=== PATIENT | female | born 1960 | race Caucasian/White ===

== ENCOUNTER 2017-11-02 21:18 | Emergency (ER) | payer OTHER ==
[2017-11-02] MEDS ORDERED: MEPERIDINE HCL 50 MG/ML AMP ONE (21:57)
--- NOTE | 2017-11-02 22:46 | EDPHYS ---
Physician Documentation [facility] Name: Dayami Oconnell Age: 57 yrs Sex: Female : 1960 Arrival Date: 11/02/2017 Time: 21:21 Bed 24 Private MD: Rian Sofia ED Physician Gui Layton HPI: 11/02 21:52 This 57 yrs old Female presents to ER via Wheelchair with complaints of rn Headache. 21:52 The patient complains of pain to the top of head. The patient describes the headache as rn aching. 21:53 Onset: The symptoms/episode began/occurred yesterday. Associated signs and symptoms: rn Pertinent positives: nausea, Photophobia. Severity of symptoms: At its worst the pain was moderate, "similar to past headaches". Headache History: The patient has had previous headaches and this one is similar to previous episodes. The patient has experienced similar episodes in the past. The patient has been recently seen by a physician:. Just seen and discharged from [facility] for same headache, no ct done, states similar to previous headaches but only got toradol and tramadol at [facility], here for stronger medication as headache is returning, no head trauma. NO focal weakness, + baseline right sided weakness from previous CVA.. 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 - Social history:: Smoking status: Patient/guardian denies using tobacco. - Family history:: not pertinent. - Hospitalizations: : No recent hospitalization is reported. ROS: 21:53 Constitutional: Negative for fever, chills, and weight loss, Eyes: Negative for injury, rn pain, redness, and discharge, Neck: Negative for injury, pain, and swelling, Cardiovascular: Negative for chest pain, palpitations, and edema, Respiratory: Negative for shortness of breath, cough, wheezing, and pleuritic chest pain, Abdomen/GI: Negative for abdominal pain, vomiting, diarrhea, and constipation, MS/Extremity: Negative for injury and deformity, Skin: Negative for injury, rash, and discoloration, Neuro: Negative for numbness, tingling, and seizure. Exam: 21:53 Constitutional: This is a well developed, well nourished patient who is awake, alert, rn and in no acute distress. Head/Face: Normocephalic, atraumatic. Eyes: Pupils equal round and reactive to light, extra-ocular motions intact. Lids and lashes normal. Conjunctiva and sclera are non-icteric and not injected. Cornea within normal limits. Periorbital areas with no swelling, redness, or edema. Neck: Trachea midline, no thyromegaly or masses palpated, and no cervical lymphadenopathy. Supple, full range of motion without nuchal rigidity, or vertebral point tenderness. No Meningismus. Cardiovascular: Regular rate and rhythm with a normal S1 and S2. No gallops, murmurs, or rubs. Normal PMI, no JVD. No pulse deficits. Respiratory: Lungs have equal breath sounds bilaterally, clear to auscultation and percussion. No rales, rhonchi or wheezes noted. No increased work of breathing, no retractions or nasal flaring. Abdomen/GI: Soft, non-tender, with normal bowel sounds. No distension or tympany. No guarding or rebound. No evidence of tenderness throughout. MS/ Extremity: Pulses equal, no cyanosis. Neurovascular intact. Full, normal range of motion. Equal circumference. Neuro: Awake and alert, GCS 15, oriented to person, place, time, and situation. Cranial nerves II-XII grossly intact. Motor strength 4/5 rue/rle, 5/5 lue/lle. Sensory grossly intact. Vital Signs: 21:27 BP 133 / 74; Pulse 99; Resp 17; Temp 97.9; Pulse Ox 99% on R/A; Weight 49.9 kg; Height aj 5 ft. 2 in. (157.48 cm); Pain 9/10; 22:55 BP 108 / 66; Pulse 94; Resp 16; Pulse Ox 98% on R/A; kr2 21:27 Body Mass Index 20.12 (49.90 kg, 157.48 cm) aj Andreea Coma Score: 22:44 Eye Response: spontaneous(4). Verbal Response: oriented(5). Motor Response: obeys rn commands(6). Total: 15. MDM: 21:30 Patient medically screened. rn 22:44 ED course: Pt sleeping comfortably. CT head no acute findings.. rn 22:44 Differential diagnosis: migraine. Data reviewed: vital signs, nurses notes, radiologic rn studies, CT scan, and as a result, I will discharge patient. Counseling: I had a detailed discussion with the patient and/or guardian regarding: the historical points, exam findings, and any diagnostic results supporting the discharge/admit diagnosis, radiology results, the need for outpatient follow up, to return to the emergency department if symptoms worsen or persist or if there are any questions or concerns that arise at home. Special discussion: I discussed with the patient/guardian in detail that at this point there is no indication for admission to the hospital. It is understood, however, that if the symptoms persist or worsen the patient needs to return immediately for re-evaluation. 11/02 21:36 Order name: CT Head Brain wo Cont rn Administered Medications: 21:42 Drug: Demerol 50 mg Route: IM; Site: left deltoid; kr2 22:56 Follow up: Response: No adverse reaction; Pain is decreased kr2 Disposition: 11/02/17 22:45 Discharged to Home. Impression: Migraine. - Condition is Stable. - Discharge Instructions: Migraine Headache. - Medication Reconciliation Form, Thank You Letter, Antibiotic Education, Prescription Opioid Use form. - Follow up: Rian Sofia MD; When: As needed; Reason: Recheck today's complaints, Re-evaluation by your physician. - Problem is an acute exacerbation. - Symptoms have improved. Signatures: Dispatcher [employer] EDMaine Maxwell RN RN aj Nieto, Roman, MD MD rn Reaves, Karey, RN RN kr2
--- NOTE | 2017-11-02 22:46 | ER ---
Nurse's Notes [facility] Name: Dayami Oconnell Age: 57 yrs Sex: Female : 1960 Arrival Date: 11/02/2017 Time: 21:21 Bed 24 Private MD: Rian Sofia Diagnosis: Migraine Presentation: 11/02 21:25 Presenting complaint: Patient states: Migraine that started yesterday. Treated at [facility] 2 hours ago. Transition of care: patient was not received from another setting of care. Onset of symptoms was November 01, 2017. Care prior to arrival: None. 21:25 Method Of Arrival: Wheelchair 21:25 Acuity: RIMA 4 Triage Assessment: 21:27 Headache History: The patient has had previous headaches and this one is similar to previous episodes. General: Appears in no apparent distress. uncomfortable, Behavior is calm, cooperative, appropriate for age. Pain: Complains of pain in face and scalp Pain currently is 9 out of 10 on a pain scale. Pain began 1 day ago. Also complains of nausea. 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 Moves all extremities. Full function Speech is normal, Reports headache. Respiratory: Airway is patent Respiratory effort is even, unlabored, Respiratory pattern is regular, symmetrical. GI: Reports nausea, vomiting. Derm: Skin is intact, is healthy with good turgor, Skin is pink, warm \T\ dry. normal. 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 - Social history:: Smoking status: Patient/guardian denies using tobacco. - Family history:: not pertinent. - Hospitalizations: : No recent hospitalization is reported. Screenin:35 Abuse screen: Denies threats or abuse. Denies injuries from another. Nutritional kr2 screening: No deficits noted. Tuberculosis screening: No symptoms or risk factors identified. Fall Risk None identified. Assessment: 21:30 General: Appears in no apparent distress. uncomfortable, slender, well groomed, kr2 Behavior is calm, cooperative, appropriate for age, quiet. Pain: Complains of pain in top of head and scalp and face Pain currently is 9 out of 10 on a pain scale. Quality of pain is described as aching, pressure, Pain began 1 day ago. Is continuous, Alleviated by medications, rest, Aggravated by light and sound Noted to be grimacing, quiet/stoic. Neuro: Level of Consciousness is awake, alert, obeys commands, Oriented to person, place, time, situation, Appropriate for age Reports history of stroke resulting in right- sided weakness with no increased weakness at this time. Cardiovascular: Capillary refill < 3 seconds in bilateral fingers Patient's skin is warm and dry. Respiratory: Airway is patent Respiratory effort is even, unlabored, Respiratory pattern is regular, symmetrical. GI: Abdomen is flat, non-distended, Reports nausea. : No signs and/or symptoms were reported regarding the genitourinary system. Denies burning with urination. EENT: Oral mucosa is dry. Derm: Skin is intact, is healthy with good turgor, Skin is pink, warm \T\ dry. Musculoskeletal: Circulation, motion, and sensation intact. 22:23 Reassessment: Patient appears in no apparent distress at this time. Patient and/or kr2 family updated on plan of care and expected duration. Pain level reassessed. Patient is alert, oriented x 3, equal unlabored respirations, skin warm/dry/pink. Patient states symptoms have improved. Vital Signs: 21:27 BP 133 / 74; Pulse 99; Resp 17; Temp 97.9; Pulse Ox 99% on R/A; Weight 49.9 kg; Height aj 5 ft. 2 in. (157.48 cm); Pain 9/10; 22:55 BP 108 / 66; Pulse 94; Resp 16; Pulse Ox 98% on R/A; kr2 21:27 Body Mass Index 20.12 (49.90 kg, 157.48 cm) aj Andreea Coma Score: 22:44 Eye Response: spontaneous(4). Verbal Response: oriented(5). Motor Response: obeys rn commands(6). Total: 15. ED Course: 21:21 Patient arrived in ED. es 21:22 Rian Sofia MD is Private Physician. es 21:27 Triage completed. aj 21:27 Arm band placed on left wrist. Patient placed in an exam room. aj 21:30 Gui Layton MD is Attending Physician. rn 21:31 Jess Baxter RN is Primary Nurse. kr2 21:36 Patient has correct armband on for positive identification. Bed in low position. Call kr2 light in reach. Side rails up X2. Adult w/ patient. Pulse ox on. NIBP on. Noise minimized. Lights dimmed. Warm blanket given. Head of bed elevated. 22:[address] vm2 22:18 CT completed. Patient tolerated procedure well. Patient moved back from CT. nc 22:19 CT Head Brain wo Cont In Process Unspecified. EDMS 22:45 Rian Sofia MD is Referral Physician. rn 22:56 No provider procedures requiring assistance completed. Patient did not have IV access kr2 during this emergency room visit. Administered Medications: 21:42 Drug: Demerol 50 mg Route: IM; Site: left deltoid; kr2 22:56 Follow up: Response: No adverse reaction; Pain is decreased kr2 Outcome: 22:45 Discharge ordered by MD. rn 22:56 Discharged to home via wheelchair, with family. kr2 22:56 Condition: improved 22:56 Discharge instructions given to patient, family, Instructed on discharge instructions, follow up and referral plans. medication usage, Demonstrated understanding of instructions, follow-up care, medications. 22:57 Patient left the ED. 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 Full function Speech is normal, Reports headache aj 22:23 22:20 General: Appears kr2 kr2
[2017-11-02 23:07] VITALS: TEMP 97.9
[2017-11-02 23:09] VITALS: BP 108/66; O2SAT 98
--- NOTE | 2017-11-03 08:10 | RAD REPORT ---
EXAM DESCRIPTION: CT - Head Brain Wo Cont - 11/03/2017 3:46 am CLINICAL HISTORY: Headache, history of CVA. COMPARISON: 08/05/2012, 09/21/2011 TECHNIQUE: All CT scans are performed using dose optimization technique as appropriate and may inclu de automated exposure control or mA/KV adjustment according to patient size. FINDINGS: No intracranial hemorrhage, hydrocephalus or extra-axial fluid collection.Significant glio sis is seen in the left frontal lobe. This appears chronic and likely related to previous CVA. No mid line shift is evident. The paranasal sinuses and mastoids are clear. The calvarium is intact. IMPRESSION: No acute intracranial abnormality.
== END 2017-11-02 22:57 | disposition home or self-care (01) ==
LOC: ER 21:18
DX: G43.909 Migraine, unspecified, not intractable, without status migrainosus (principal); Z79.82 Long term (current) use of aspirin; Z86.73 Personal history of transient ischemic attack (TIA), and cerebral infarction without residual deficits
CPT/HCPCS: 70450; 96372; 99284; J2175

== ENCOUNTER 2018-03-26 12:14 | Emergency (ER) | payer OTHER ==
[2018-03-26] MEDS ORDERED: METOCLOPRAMIDE 10 MG/2mL INJ ONE (15:33)
[2018-03-26] MEDS ORDERED: NA CHLORIDE 0.9% 1,000 ML ONE (15:33)
[2018-03-26] MEDS ORDERED: DIPHENHYDRAMINE 50 MG/ML VIAL ONE (15:33)
[2018-03-26] MEDS ORDERED: DEXAMETHASONE 10 MG/ML VIAL ONE ×2 (17:11→17:14)
[2018-03-26] MEDS ORDERED: KETOROLAC 30 MG/ML INJ ONE ×2 (17:11→17:14)
[2018-03-26] MEDS ORDERED: MEPERIDINE HCL 50 MG/ML AMP ONE (18:30)
--- NOTE | 2018-03-26 18:55 | RAD REPORT ---
EXAM DESCRIPTION: CT - Head Brain Wo Cont - 03/26/2018 6:34 pm CLINICAL HISTORY: Headache COMPARISON: October 2017 TECHNIQUE: Computed axial tomography of the head was obtained. IV contrast was not requested. All CT scans are performed using dose optimization technique as appropriate and may include automated exposure control or mA/KV adjustment according to patient size. 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 An intracranial bleed is not seen . The ventricles are normal in caliber. No extra-axial fluid collection is noted. Fluid within the sinuses/ mastoids is not seen. IMPRESSION: No acute intracranial abnormality is seen. If patient's symptoms persist MRI of the bra in would be recommended.
--- NOTE | 2018-03-26 19:03 | ER ---
Nurse's Notes [facility] Name: Dayami Oconnell Age: 57 yrs Sex: Female : 1960 Arrival Date: 03/26/2018 Time: 12:16 Bed 26 Private MD: Rian Sofia Diagnosis: Acute Headache Presentation: 03/26 12:45 Presenting complaint: Patient states: migraine x 2 days above L eye. Transition of ss care: patient was not received from another setting of care. Onset of symptoms was March 24, 2018. Risk Assessment: Do you want to hurt yourself or someone else? Patient reports no desire to harm self or others. Initial Sepsis Screen: Does the patient meet any 2 criteria? No. Patient's initial sepsis screen is negative. Does the patient have a suspected source of infection? No. Patient's initial sepsis screen is negative. Care prior to arrival: None. 12:45 Method Of Arrival: Ambulatory ss 12:45 Acuity: RIMA 4 ss Historical: - Allergies: 12:46 No Known Allergies; ss - Home Meds: 17:27 Aspirin Oral [Active]; rv - PMHx: 12:46 CVA; Migraines; ss - PSHx: 12:46 None; ss - Immunization history:: Adult Immunizations up to date. - Social history:: Smoking status: Patient/guardian denies using tobacco. - Ebola Screening: : Patient denies exposure to infectious person Patient denies travel to an Ebola-affected area in the 21 days before illness onset. Screenin:33 Abuse screen: Denies threats or abuse. Denies injuries from another. Abuse screen: sv Denies threats or abuse. Nutritional screening: No deficits noted. Tuberculosis screening: No symptoms or risk factors identified. Fall Risk None identified. Assessment: 15:00 General: Appears in no apparent distress. uncomfortable, Behavior is calm, cooperative. rv 15:00 Pain: Complains of pain in HEAD, LEFT SIDE Pain currently is 7 out of 10 on a pain rv scale. Neuro: Level of Consciousness is awake, alert, obeys commands, Oriented to person, place, time, situation. Cardiovascular: Capillary refill < 3 seconds. Respiratory: Airway is patent. GI: No signs and/or symptoms were reported involving the gastrointestinal system. : No signs and/or symptoms were reported regarding the genitourinary system. EENT: No signs and/or symptoms were reported regarding the EENT system. Derm: Skin is intact. 17:00 Reassessment: Patient appears in no apparent distress at this time. Patient and/or hb family updated on plan of care and expected duration. Pain level reassessed. Patient is alert, oriented x 3, equal unlabored respirations, skin warm/dry/pink. 18:00 Reassessment: Patient appears in no apparent distress at this time. Patient and/or hb family updated on plan of care and expected duration. Pain level reassessed. Patient is alert, oriented x 3, equal unlabored respirations, skin warm/dry/pink. Vital Signs: 12:46 BP 113 / 59; Pulse 81; Resp 15; Temp 98.1(TE); Pulse Ox 97% on R/A; Weight 49.9 kg; ss Height 5 ft. 2 in. (157.48 cm); Pain 5/10; 17:08 BP 96 / 64 LA Supine (auto/pedi); Pulse 79; Resp 19 S; Pulse Ox 99% on R/A; jp3 17:27 BP 99 / 63; Pulse 83; Pulse Ox 97% on R/A; rv 19:17 BP 100 / 62; Pulse 75; Pulse Ox 100% on R/A; rv 12:46 Body Mass Index 20.12 (49.90 kg, 157.48 cm) ED Course: 12:16 Patient arrived in ED. sb2 12:17 Rian Sofia MD is Private Physician. sb2 12:46 Triage completed. ss 12:46 Arm band placed on right wrist. ss 14:55 Patient placed in an exam room, on a stretcher. sv 14:59 Mando Pickett PA is PHCP. jmm 14:59 Buddy Roberts MD is Attending Physician. jmm 15:28 Inserted saline lock: 20 gauge in left antecubital area, using aseptic technique. sv ,using aseptic technique. done by Winston ALBARRAN. 15:33 Patient has correct armband on for positive identification. Bed in low position. Call sv light in reach. Door closed. Noise minimized. Lights dimmed. Warm blanket given. Head of bed elevated. 18:34 CT Head Brain wo Cont In Process Unspecified. EDMS 19:01 Kurt Garcia MD is Referral Physician. jmm 19:16 No provider procedures requiring assistance completed. IV discontinued, bleeding rv controlled, No redness/swelling at site. Pressure dressing applied. Administered Medications: 15:30 Drug: diphenhydrAMINE 12.5 mg Route: IVP; Site: left antecubital; sv 19:15 Follow up: Response: No adverse reaction rv 15:33 Drug: NS 0.9% 1000 ml Route: IV; Rate: 1 bolus; Site: left antecubital; sv 19:15 Follow up: Response: No adverse reaction; IV Status: Completed infusion rv 15:33 Drug: Reglan 10 mg Route: IVP; Site: left antecubital; sv 19:15 Follow up: Response: No adverse reaction rv 17:11 Drug: Decadron - Dexamethasone 10 mg Route: IVP; Site: right antecubital; hb 18:00 Follow up: Response: No adverse reaction hb 17:11 Drug: Ketorolac 30 mg Route: IVP; Site: left antecubital; hb 18:00 Follow up: Response: No adverse reaction hb 18:30 Drug: Demerol 25 mg Route: IVP; Site: left antecubital; hb 19:15 Follow up: Response: Pain is decreased rv Outcome: 19:02 Discharge ordered by MD. [facility] 19:16 Discharged to home ambulatory. rv 19:16 Condition: good 19:16 Discharge instructions given to patient, family, Instructed on discharge instructions, follow up and referral plans. medication usage, Demonstrated understanding of instructions, follow-up care, medications, Prescriptions given X 1. 19:16 Patient left the ED. rv Signatures: Dispatcher [employer] Jesika Fermin RN RN sv Mickail, Joel, PA PA jmm Smirch, Shelby, RN RN Lynne Batres RN RN Stefani Mckeon sb2 Winston Chou RN RN Dimitri Mejía jp3
--- NOTE | 2018-03-26 19:03 | EDPHYS ---
Physician Documentation [facility] Name: Dayami Oconnell Age: 57 yrs Sex: Female : 1960 Arrival Date: 03/26/2018 Time: 12:16 Bed 26 Private MD: Rian Sofia ED Physician Buddy Roberts HPI: 03/26 15:21 This 57 yrs old Female presents to ER via Ambulatory with complaints of jmm MIGRAINE. 15:21 The patient complains of pain to the left sikh, left frontal area, left side of jmm forehead and left temporal area. The patient describes the headache as aching. Onset: The symptoms/episode began/occurred gradually, 1 day(s) ago. Associated signs and symptoms: Pertinent negatives: dizziness, fever, malaise, neck stiffness, paresthesias. This is a 57 year old female with a history of CVA that presents to the ED with left headache beginning 1 day ago. Headache is gradual on onset. Patient has had similar headaches in the past. Denies fever, . Historical: - Allergies: 12:46 No Known Allergies; ss - Home Meds: 17:27 Aspirin Oral [Active]; rv - PMHx: 12:46 CVA; Migraines; ss - PSHx: 12:46 None; ss - Immunization history:: Adult Immunizations up to date. - Social history:: Smoking status: Patient/guardian denies using tobacco. - Ebola Screening: : Patient denies exposure to infectious person Patient denies travel to an Ebola-affected area in the 21 days before illness onset. ROS: 15:21 Constitutional: Negative for fever, chills, and weight loss, Cardiovascular: Negative jmm for chest pain, palpitations, and edema, Respiratory: Negative for shortness of breath, cough, wheezing, and pleuritic chest pain. 15:21 Neuro: Positive for headache. 15:21 All other systems are negative. Exam: 15:21 Constitutional: This is a well developed, well nourished patient who is awake, alert, jmm and in no acute distress. Head/Face: atraumatic. Chest/axilla: Normal chest wall appearance and motion. Cardiovascular: Regular rate and rhythm. No edema appreciated Respiratory: Normal respirations, no respiratory distress appreciated Abdomen/GI: Non distended, soft 15:21 Neuro: Orientation: is normal, Mentation: is normal, Memory: is normal. 15:21 Neuro: Cerebellar function: normal finger to nose testing, Motor: is normal. 15:21 Psych: Behavior/mood is pleasant, cooperative. Vital Signs: 12:46 BP 113 / 59; Pulse 81; Resp 15; Temp 98.1(TE); Pulse Ox 97% on R/A; Weight 49.9 kg; ss Height 5 ft. 2 in. (157.48 cm); Pain 5/10; 17:08 BP 96 / 64 LA Supine (auto/pedi); Pulse 79; Resp 19 S; Pulse Ox 99% on R/A; jp3 17:27 BP 99 / 63; Pulse 83; Pulse Ox 97% on R/A; rv 19:17 BP 100 / 62; Pulse 75; Pulse Ox 100% on R/A; rv 12:46 Body Mass Index 20.12 (49.90 kg, 157.48 cm) ss MDM: 15:[address] [facility] 18:22 Data reviewed: vital signs, nurses notes. [facility] 19:00 Sepsis 6 hour Focused Exam:. Counseling: I had a detailed discussion with the patient [facility] and/or guardian regarding: the historical points, exam findings, and any diagnostic results supporting the discharge/admit diagnosis, radiology results, the need for outpatient follow up, to return to the emergency department if symptoms worsen or persist or if there are any questions or concerns that arise at home. Response to treatment: the patient's symptoms have markedly improved after treatment. ED course: MAR similar to previous, negative CT, patient is advised to follow up with Neuro for further evaluatino. Given strict return precautions. understood and agrees with the plan of care. . 03/26 18:02 Order name: CT Head Brain wo Cont; Complete Time: 19:00 [facility] Administered Medications: 15:30 Drug: diphenhydrAMINE 12.5 mg Route: IVP; Site: left antecubital; sv 19:15 Follow up: Response: No adverse reaction rv 15:33 Drug: NS 0.9% 1000 ml Route: IV; Rate: 1 bolus; Site: left antecubital; sv 19:15 Follow up: Response: No adverse reaction; IV Status: Completed infusion rv 1533 Drug: Reglan 10 mg Route: IVP; Site: left antecubital; sv 19:15 Follow up: Response: No adverse reaction rv 17:11 Drug: Decadron - Dexamethasone 10 mg Route: IVP; Site: right antecubital; hb 18:00 Follow up: Response: No adverse reaction hb 17:11 Drug: Ketorolac 30 mg Route: IVP; Site: left antecubital; hb 18:00 Follow up: Response: No adverse reaction hb 18:30 Drug: Demerol 25 mg Route: IVP; Site: left antecubital; hb 19:15 Follow up: Response: Pain is decreased rv Disposition: 03/26/18 19:02 Discharged to Home. Impression: Acute Headache. - Condition is Stable. - Discharge Instructions: General Headache Without Cause. - Prescriptions for Fiorinal 50- 325-40 mg Oral Capsule - take 1 capsule by ORAL route every 4 hours As needed - not to exceed 6 capsules per day; 20 capsule. - Medication Reconciliation Form, Thank You Letter, Antibiotic Education, Prescription Opioid Use form. - Follow up: Kurt Garcia MD; When: 2 - 3 days; Reason: Recheck today's complaints, Continuance of care, Re-evaluation by your physician. Addendum: 03/28/2018 11:28 Co-signature as Attending Physician, Buddy Roberts MD I agree with the assessment and w a plan of care. Signatures: Dispatcher [employer] Jesika Fermin, RN RN Mando Nogueira PA PA jmm Smirch, Shelby, RN RN Lynne Batres RN RN hb Appiah, William, MD MD wa Vicente, Ronaldo RN RN rv Corrections: (The following items were deleted from the chart) 03/26 19:16 19:02 03/26/2018 19:02 Discharged to Home. Impression: Acute Headache. Condition is rv Stable. Forms are Medication Reconciliation Form, Thank You Letter, Antibiotic Education, Prescription Opioid Use. Follow up: Kurt Garcia; When: 2 - 3 days; Reason: Recheck today's complaints, Continuance of care, Re-evaluation by your physician. luis
[2018-03-26 19:23] VITALS: TEMP 98.1
[2018-03-26 19:25] VITALS: BP 99/63; O2SAT 97
== END 2018-03-26 19:16 | disposition home or self-care (01) ==
LOC: ER 12:14
DX: R51 Headache (principal); Z86.73 Personal history of transient ischemic attack (TIA), and cerebral infarction without residual deficits
CPT/HCPCS: 70450; J1100 ×2; J2175; J2765; J7030; 99284

== ENCOUNTER 2018-07-31 19:07 | Emergency (ER) | payer OTHER ==
[2018-07-31] MEDS ORDERED: METOCLOPRAMIDE 10 MG/2mL INJ ONE (20:30)
[2018-07-31] MEDS ORDERED: KETOROLAC 30 MG/ML INJ ONE (20:30)
[2018-07-31] MEDS ORDERED: DIPHENHYDRAMINE 50 MG/ML VIAL ONE (20:30)
[2018-07-31] MEDS ORDERED: NA CHLORIDE 0.9% 1,000 ML ONE (20:30)
--- NOTE | 2018-07-31 22:24 | ER ---
Nurse's Notes [facility] Name: Dayami Oconnell Age: 57 yrs Sex: Female : 1960 Arrival Date: 07/31/2018 Time: 19:07 Bed 17 Private MD: Rian Sofia Diagnosis: Headache Presentation: 07/31 19:30 Presenting complaint: states: that pt woke up this am with headache and has fc also had nausea and vomiting since. Taken Zofran x 2 with no relief. Transition of care: patient was not received from another setting of care. Onset of symptoms was July 31, 2018 at 07:30. Risk Assessment: Do you want to hurt yourself or someone else? Patient reports no desire to harm self or others. Initial Sepsis Screen: Does the patient meet any 2 criteria? HR > 90 bpm. Yes Does the patient have a suspected source of infection? No. Patient's initial sepsis screen is negative. Care prior to arrival: Medication(s) given: zofran last at 1600. 19:30 Method Of Arrival: Ambulatory 19:30 Acuity: RIMA 3 Triage Assessment: 19:32 Headache History: The patient has had previous headaches and this one is similar to previous episodes. General: Appears uncomfortable, slender, Behavior is calm, cooperative, appropriate for age. Pain: Complains of pain in head Pain currently is 9 out of 10 on a pain scale. Quality of pain is described as aching, sharp, throbbing, Pain began 12 hrs ago Is continuous, Also complains of nausea, photophobia. EENT: No deficits noted. Neuro: Level of Consciousness is awake, alert, obeys commands, Oriented to person, place, time, situation, Appropriate for age Reports weakness to right arm and leg from previous stroke. Cardiovascular: No deficits noted. Respiratory: No deficits noted. GI: No deficits noted. : No deficits noted. Derm: Skin is pink, warm \T\ dry. Musculoskeletal: Reports weakness in right leg and right arm from previous stroke. 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 - Social history:: Smoking status: Patient/guardian denies using tobacco, Patient/guardian denies using alcohol, street drugs. - Ebola Screening: : Patient negative for fever greater than or equal to 101.5 degrees Fahrenheit, and additional compatible Ebola Virus Disease symptoms Patient denies exposure to infectious person Patient denies travel to an Ebola-affected area in the 21 days before illness onset. Screenin:36 Abuse screen: Denies threats or abuse. Nutritional screening: No deficits noted. tl2 Tuberculosis screening: No symptoms or risk factors identified. Fall Risk IV access (20 points). Assessment: 20:36 General: Appears in no apparent distress. uncomfortable, Behavior is calm, cooperative, tl2 appropriate for age. Pain: Complains of pain in headache Pain currently is 10 out of 10 on a pain scale. Also complains of nausea, photophobia. Neuro: Level of Consciousness is awake, alert, obeys commands. Cardiovascular: Denies chest pain. Respiratory: Airway is patent Respiratory effort is even, unlabored, Respiratory pattern is regular, symmetrical. GI: Reports nausea, vomiting. : No signs and/or symptoms were reported regarding the genitourinary system. Derm: Skin is pink, warm \T\ dry. 20:51 Reassessment: Patient appears in no apparent distress at this time. Patient and/or tl2 family updated on plan of care and expected duration. Pain level reassessed. Patient is alert, oriented x 3, equal unlabored respirations, skin warm/dry/pink. pillow and blanket provided. Pt appears more comfortable. Awaiting further orders. 22:19 Reassessment: Patient appears in no apparent distress at this time. Patient and/or tl2 family updated on plan of care and expected duration. Pain level reassessed. Patient is alert, oriented x 3, equal unlabored respirations, skin warm/dry/pink. MD at bedside, pt states she is ready to go home Patient states feeling better. 22:32 Reassessment: Patient appears in no apparent distress at this time. Patient and/or tl2 family updated on plan of care and expected duration. Pain level reassessed. Patient is alert, oriented x 3, equal unlabored respirations, skin warm/dry/pink. pt verbalized understanding of discharge instructions, need for follow up and prescription usage. Vital Signs: 19:32 BP 132 / 70; Pulse 106; Resp 18; Temp 98.0(O); Pulse Ox 100% on R/A; Weight 49.9 kg fc (R); Height 5 ft. 2 in. (157.48 cm) (R); Pain 9/10; 20:51 BP 130 / 85; Pulse 93; Resp 18; Pulse Ox 100% on R/A; tl2 21:31 BP 114 / 69; Pulse 94; Resp 18; Pulse Ox 100% on R/A; tl2 22:18 BP 105 / 55; Pulse 82; Resp 18; Pulse Ox 99% on R/A; Pain 4/10; tl2 19:32 Body Mass Index 20.12 (49.90 kg, 157.48 cm) ED Course: 19:07 Patient arrived in ED. es 19:10 Rian Sofia MD is Private Physician. es 19:31 Triage completed. fc 19:32 Arm band placed on Patient placed in an exam room, on a stretcher. fc 19:49 Erick Gallo MD is Attending Physician. gs 20:12 Carisa Mathew RN is Primary Nurse. tl2 20:33 Inserted saline lock: 22 gauge in left antecubital area, using aseptic technique. lt1 20:36 Patient has correct armband on for positive identification. Bed in low position. Call tl2 light in reach. Side rails up X2. 22:35 No provider procedures requiring assistance completed. IV discontinued, intact, tl2 bleeding controlled, No redness/swelling at site. Pressure dressing applied. Administered Medications: 20:32 Drug: Reglan 5 mg Route: IVP; Site: left antecubital; tl2 22:38 Follow up: Response: No adverse reaction tl2 20:32 Drug: Benadryl 12.5 mg Route: IVP; Site: left antecubital; tl2 22:40 Follow up: Response: No adverse reaction; Pain is decreased tl2 20:33 Drug: TORadol 15 mg Route: IVP; Site: left antecubital; tl2 22:40 Follow up: Response: No adverse reaction tl2 20:33 Drug: NS 0.9% 1000 ml Route: IV; Rate: 1 bolus; Site: left antecubital; tl2 22:41 Follow up: IV Status: Completed infusion; IV Intake: 1000ml tl2 Intake: 22:41 IV: 1000ml; Total: 1000ml. tl2 Outcome: 22:22 Discharge ordered by . 22:35 Discharged to home ambulatory, with family. tl2 22:35 Condition: stable 22:35 Discharge instructions given to patient, family, Instructed on discharge instructions, follow up and referral plans. medication usage, Demonstrated understanding of instructions, follow-up care, medications, Prescriptions given X 1. 22:41 Patient left the ED. tl2 Signatures: Lupe Motta Felicia RN RN Carisa Mathew RN RN tl2 Erick Gallo MD MD gs Tran, [facility] Corrections: (The following items were deleted from the chart) 19:35 19:32 Neuro: Level of Consciousness is awake, alert, obeys commands, Oriented to person, place, time, situation, Appropriate for age 19:35 19:32 Musculoskeletal: No deficits noted. [facility] 22:35 20:36 Pain: Complains of pain in headache Pain currently is 103 out of 10 on a pain tl2 scale. Also complains of nausea, photophobia, tl2 22:36 22:32 Reassessment: Patient appears in no apparent distress at this time. Patient tl2 and/or family updated on plan of care and expected duration. Pain level reassessed. Patient is alert, oriented x 3, equal unlabored respirations, skin warm/dry/pink. tl2
--- NOTE | 2018-07-31 22:24 | EDPHYS ---
Physician Documentation [facility] Name: Dayami Oconnell Age: 57 yrs Sex: Female : 1960 Arrival Date: 07/31/2018 Time: 19:07 Bed 17 Private MD: Rian Sofia ED Physician Erick Gallo HPI: 07/31 22:13 This 57 yrs old Female presents to ER via Ambulatory with complaints of gs Headache. 22:13 The patient complains of pain to the forehead and left islam. The patient describes gs the headache as throbbing. Onset: The symptoms/episode began/occurred suddenly, this morning. Associated signs and symptoms: Pertinent positives: vomiting, Pertinent negatives: altered mental status. Severity of symptoms: At its worst the pain was severe, in the emergency department the pain is unchanged. Headache History: The patient has had previous headaches and this one is similar to previous episodes. The symptoms are alleviated by nothing. the symptoms are aggravated by nothing. The patient has experienced similar episodes in the past, chronically. The patient has not recently seen a physician. 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 - Social history:: Smoking status: Patient/guardian denies using tobacco, Patient/guardian denies using alcohol, street drugs. - Ebola Screening: : Patient negative for fever greater than or equal to 101.5 degrees Fahrenheit, and additional compatible Ebola Virus Disease symptoms Patient denies exposure to infectious person Patient denies travel to an Ebola-affected area in the 21 days before illness onset. ROS: 22:13 All other systems are negative. gs Exam: 22:13 Head/Face: Normocephalic, atraumatic. Eyes: Pupils equal round and reactive to light, gs extra-ocular motions intact. Lids and lashes normal. Conjunctiva and sclera are non-icteric and not injected. Cornea within normal limits. Periorbital areas with no swelling, redness, or edema. ENT: Nares patent. No nasal discharge, no septal abnormalities noted. Tympanic membranes are normal and external auditory canals are clear. Oropharynx with no redness, swelling, or masses, exudates, or evidence of obstruction, uvula midline. Mucous membranes moist. Neck: Trachea midline, no thyromegaly or masses palpated, and no cervical lymphadenopathy. Supple, full range of motion without nuchal rigidity, or vertebral point tenderness. No Meningismus. Chest/axilla: Normal chest wall appearance and motion. Nontender with no deformity. No lesions are appreciated. Cardiovascular: Regular rate and rhythm with a normal S1 and S2. No gallops, murmurs, or rubs. Normal PMI, no JVD. No pulse deficits. Respiratory: Lungs have equal breath sounds bilaterally, clear to auscultation and percussion. No rales, rhonchi or wheezes noted. No increased work of breathing, no retractions or nasal flaring. Abdomen/GI: Soft, non-tender, with normal bowel sounds. No distension or tympany. No guarding or rebound. No evidence of tenderness throughout. Back: No spinal tenderness. No costovertebral tenderness. Full range of motion. Skin: Warm, dry with normal turgor. Normal color with no rashes, no lesions, and no evidence of cellulitis. MS/ Extremity: Pulses equal, no cyanosis. Neurovascular intact. Full, normal range of motion. Neuro: Awake and alert, GCS 15, oriented to person, place, time, and situation. Cranial nerves II-XII grossly intact. Motor strength 5/5 in all extremities. Sensory grossly intact. Cerebellar exam normal. Normal gait. 22:13 Constitutional: The patient appears alert, awake, uncomfortable. Vital Signs: 19:32 BP 132 / 70; Pulse 106; Resp 18; Temp 98.0(O); Pulse Ox 100% on R/A; Weight 49.9 kg fc (R); Height 5 ft. 2 in. (157.48 cm) (R); Pain 9/10; 20:51 BP 130 / 85; Pulse 93; Resp 18; Pulse Ox 100% on R/A; tl2 21:31 BP 114 / 69; Pulse 94; Resp 18; Pulse Ox 100% on R/A; tl2 22:18 BP 105 / 55; Pulse 82; Resp 18; Pulse Ox 99% on R/A; Pain 4/10; tl2 19:32 Body Mass Index 20.12 (49.90 kg, 157.48 cm) MDM: 20:07 Patient medically screened. gs 22:13 Differential diagnosis: migraine, tension headache, vasomotor headache. Data reviewed: vital signs, nurses notes. Counseling: I had a detailed discussion with the patient and/or guardian regarding: the historical points, exam findings, and any diagnostic results supporting the discharge/admit diagnosis. Response to treatment: the patient's symptoms have markedly improved after treatment, the patient's condition has returned to base line. Response to treatment: and as a result, I will discharge patient. Administered Medications: 20:32 Drug: Reglan 5 mg Route: IVP; Site: left antecubital; tl2 22:38 Follow up: Response: No adverse reaction tl2 20:32 Drug: Benadryl 12.5 mg Route: IVP; Site: left antecubital; tl2 22:40 Follow up: Response: No adverse reaction; Pain is decreased tl2 20:33 Drug: TORadol 15 mg Route: IVP; Site: left antecubital; tl2 22:40 Follow up: Response: No adverse reaction tl2 20:33 Drug: NS 0.9% 1000 ml Route: IV; Rate: 1 bolus; Site: left antecubital; tl2 22:41 Follow up: IV Status: Completed infusion; IV Intake: 1000ml tl2 Disposition: 07/31/18 22:22 Discharged to Home. Impression: Headache. - Condition is Stable. - Discharge Instructions: General Headache Without Cause, Migraine Headache. - Prescriptions for Fiorinal 50- 325-40 mg Oral Capsule - take 1 capsule by ORAL route every 4 hours As needed - not to exceed 6 capsules per day; 20 capsule. - Medication Reconciliation Form, Thank You Letter, Antibiotic Education, Prescription Opioid Use form. - Follow up: Private Physician; When: 2 - 3 days; Reason: Re-evaluation by your physician. Signatures: Carol Quijano RN RN Carisa Mathew RN RN tl2 Erick Gallo MD MD Corrections: (The following items were deleted from the chart) 22:41 22:22 07/31/2018 22:22 Discharged to Home. Impression: Headache. Condition is Stable. tl2 Forms are Medication Reconciliation Form, Thank You Letter, Antibiotic Education, Prescription Opioid Use. Follow up: Private Physician; When: 2 - 3 days; Reason: Re-evaluation by your physician. gs
[2018-08-01 00:51] VITALS: TEMP 98
[2018-08-01 01:03] VITALS: BP 105/55; O2SAT 99
== END 2018-07-31 22:41 | disposition home or self-care (01) ==
LOC: ER 19:07
DX: R51 Headache (principal); Z79.82 Long term (current) use of aspirin; Z86.73 Personal history of transient ischemic attack (TIA), and cerebral infarction without residual deficits
CPT/HCPCS: 96361; 96374; 96375; 99283; J2765; J7030

== ENCOUNTER 2018-10-28 13:36 | Emergency (ER) | payer OTHER ==
[2018-10-28] MEDS ORDERED: NA CHLORIDE 0.9% 1,000 ML ONE (15:06)
[2018-10-28] MEDS ORDERED: PROMETHAZINE 25 MG/ML VIAL ONE (15:06)
[2018-10-28] MEDS ORDERED: MEPERIDINE HCL 50 MG/ML AMP ONE (15:06)
--- NOTE | 2018-10-28 16:04 | ER ---
Nurse's Notes [facility] Name: Dayami Oconnell Age: 58 yrs Sex: Female : 1960 Arrival Date: 10/28/2018 Time: 13:38 Bed 8 Private MD: Rian Sofia Diagnosis: Migraine Presentation: 10/28 13:40 Presenting complaint: Patient states: Nausea vomiting with headache and sensitivity to sg light for several days, reports pain a 10/10. Transition of care: patient was not received from another setting of care. Onset of symptoms was October 28, 2018. Risk Assessment: Do you want to hurt yourself or someone else? Patient reports no desire to harm self or others. Initial Sepsis Screen: Does the patient meet any 2 criteria? No. Patient's initial sepsis screen is negative. Does the patient have a suspected source of infection? No. Patient's initial sepsis screen is negative. Care prior to arrival: None. 13:40 Method Of Arrival: Ambulatory sg 13:40 Acuity: RIMA 3 sg Triage Assessment: 13:42 General: Appears in no apparent distress. uncomfortable, ill, slender, well developed, sg well nourished, Behavior is calm, cooperative, appropriate for age. Pain: Complains of pain in headache Quality of pain is described as throbbing, with sensitivity to light. GI: Reports nausea, vomiting. Historical: - Allergies: 13:42 No Known Allergies; sg - Home Meds: 13:42 aspirin 325 mg Oral tab 1 tab once daily [Active]; sg - PMHx: 13:42 CVA; Migraines; sg - PSHx: 13:42 None; sg - Immunization history:: Adult Immunizations up to date. - Social history:: Smoking status: Patient/guardian denies using tobacco. - Ebola Screening: : Patient negative for fever greater than or equal to 101.5 degrees Fahrenheit, and additional compatible Ebola Virus Disease symptoms Patient denies exposure to infectious person Patient denies travel to an Ebola-affected area in the 21 days before illness onset No symptoms or risks identified at this time. - Family history:: not pertinent. - Hospitalizations: : No recent hospitalization is reported. Screenin:44 Abuse screen: Denies threats or abuse. Denies injuries from another. Nutritional aj1 screening: No deficits noted. Tuberculosis screening: No symptoms or risk factors identified. 16:00 Fall Risk None identified. aj1 Assessment: 14:40 General: Appears in no apparent distress. uncomfortable, Behavior is cooperative, aj1 restless. Pain: Complains of pain in face Pain does not radiate. Pain currently is 10 out of 10 on a pain scale. Neuro: Level of Consciousness is awake, alert, obeys commands, Oriented to person, place, time, situation, Moves all extremities. Full function Gait is steady, Reports photophobia nausea, vomiting. Patient reports that she has a history of migraines, she has medications for it, but this time she has been vomiting them up before they take effect. Cardiovascular: Patient's skin is warm and dry. Respiratory: Airway is patent Respiratory effort is even, unlabored, Respiratory pattern is regular, symmetrical. GI: Abdomen is non-distended, Reports nausea, vomiting. : No signs and/or symptoms were reported regarding the genitourinary system. EENT: No signs and/or symptoms were reported regarding the EENT system. Derm: No signs and/or symptoms reported regarding the dermatologic system. Skin is pink, warm \T\ dry. normal. Musculoskeletal: No signs and/or symptoms reported regarding the musculoskeletal system. Circulation, motion, and sensation intact. 15:15 Reassessment: After administering IV pain and nausea medication patient's O2 sat aj1 dropped to 90% on room air. Patient placed on O2 \T\ 2L per nc, 2 sat up to 97% at this time. BP 122/50. HR 88 RR 17. 15:59 Reassessment: Patient states that her headache is much better at this time. Rates pain aj1 2/10. Vital Signs: 13:41 BP 145 / 98; Pulse 87; Resp 17; Temp 98.0; Pulse Ox 100% on R/A; Pain 10/10; sg 16:00 BP 112 / 66; Pulse 91; Resp 16; Pulse Ox 100% on R/A; aj1 [place] Coma Score: 16:01 Eye Response: spontaneous(4). Verbal Response: oriented(5). Motor Response: obeys rn commands(6). Total: 15. ED Course: 13:38 Patient arrived in ED. mr 13:39 Rian Sofia MD is Private Physician. mr 13:41 Triage completed. sg 13:42 Arm band placed on. sg 14:25 Gui Layton MD is Attending Physician. rn 14:30 Yvette Recio, RN is Primary Nurse. aj1 14:44 Patient has correct armband on for positive identification. Bed in low position. Call aj1 light in reach. Side rails up X 1. Pulse ox on. NIBP on. 14:44 No provider procedures requiring assistance completed. aj1 16:14 IV discontinued, intact, bleeding controlled, No redness/swelling at site. Pressure iw dressing applied. Administered Medications: 15:14 Drug: NS 0.9% 1000 ml Route: IV; Rate: 1000 ml; Site: right wrist; aj1 15:14 Drug: Demerol 50 mg Route: IVP; Site: right wrist; aj1 15:14 Drug: Phenergan 12.5 mg Route: IVP; Site: right wrist; aj1 Outcome: 16:03 Discharge ordered by MD. rn 16:14 Discharged to home via wheelchair, with family. iw 16:14 Condition: good 16:14 Discharge instructions given to patient, family, Instructed on discharge instructions, follow up and referral plans. Demonstrated understanding of instructions, follow-up care. 16:15 Patient left the ED. iw Signatures: Yvette Recio, AVIS RN aj Jordan Forrester RN RN Georgie Collier Irene, RN RN Gui Lyaton MD MD rn
--- NOTE | 2018-10-28 16:04 | EDPHYS ---
Physician Documentation [facility] Name: Dayami Oconnell Age: 58 yrs Sex: Female : 1960 Arrival Date: 10/28/2018 Time: 13:38 Bed 8 Private MD: Rian Sofia ED Physician Gui Layton HPI: 10/28 15:07 This 58 yrs old Female presents to ER via Ambulatory with complaints of rn Vomiting, Headache. 15:07 The patient complains of pain to the top of head. The patient describes the headache as rn aching. Onset: The symptoms/episode began/occurred yesterday. Associated signs and symptoms: Pertinent positives: nausea, vomiting, Pertinent negatives: altered mental status, fever, neck stiffness, rash, vision loss. Headache History: The patient has had previous headaches and this one is similar to previous episodes. The patient has experienced similar episodes in the past. The patient has not recently seen a physician. Reports hx of migraines, gets them about monthly, reports her pain meds aren't working, + nausea and light sensitivity, similar to previous migraines, no head injury, no fever. . Historical: - Allergies: 13:42 No Known Allergies; sg - Home Meds: 13:42 aspirin 325 mg Oral tab 1 tab once daily [Active]; sg - PMHx: 13:42 CVA; Migraines; sg - PSHx: 13:42 None; sg - Immunization history:: Adult Immunizations up to date. - Social history:: Smoking status: Patient/guardian denies using tobacco. - Ebola Screening: : Patient negative for fever greater than or equal to 101.5 degrees Fahrenheit, and additional compatible Ebola Virus Disease symptoms Patient denies exposure to infectious person Patient denies travel to an Ebola-affected area in the 21 days before illness onset No symptoms or risks identified at this time. - Family history:: not pertinent. - Hospitalizations: : No recent hospitalization is reported. ROS: 15:07 Constitutional: Negative for fever, chills, and weight loss, Eyes: Negative for injury, rn pain, redness, and discharge, Cardiovascular: Negative for chest pain, palpitations, and edema, Respiratory: Negative for shortness of breath, cough, wheezing, and pleuritic chest pain, Abdomen/GI: + nausea/vomiting MS/Extremity: Negative for injury and deformity, Skin: Negative for injury, rash, and discoloration, Neuro: + headache Exam: 15:07 Constitutional: This is a well developed, well nourished patient who is awake, alert, rn and in no acute distress. Head/Face: Normocephalic, atraumatic. Eyes: Pupils equal round and reactive to light, extra-ocular motions intact. Periorbital areas with no swelling, redness, or edema. ENT: Mucous membranes moist. Respiratory: No increased work of breathing, no retractions or nasal flaring. Skin: Warm, dry MS/ Extremity: Pulses equal, no cyanosis. Neurovascular intact. Full, normal range of motion. Equal circumference. Neuro: Awake and alert, GCS 15, oriented to person, place, time, and situation. Cranial nerves II-XII grossly intact. Strength 4/5 RUE/RLE and 5/5 LUE/LLE. Sensory grossly intact. Cerebellar exam normal. Vital Signs: 13:41 BP 145 / 98; Pulse 87; Resp 17; Temp 98.0; Pulse Ox 100% on R/A; Pain 10/10; sg 16:00 BP 112 / 66; Pulse 91; Resp 16; Pulse Ox 100% on R/A; aj1 [place] Coma Score: 16:01 Eye Response: spontaneous(4). Verbal Response: oriented(5). Motor Response: obeys rn commands(6). Total: 15. MDM: 14:25 Patient medically screened. rn 16:01 Differential diagnosis: migraine, tension headache, vasomotor headache. Data reviewed: rn vital signs, nurses notes, and as a result, I will discharge patient. Counseling: I had a detailed discussion with the patient and/or guardian regarding: the historical points, exam findings, and any diagnostic results supporting the discharge/admit diagnosis, the need for outpatient follow up, to return to the emergency department if symptoms worsen or persist or if there are any questions or concerns that arise at home. Response to treatment: the patient's symptoms have markedly improved after treatment, and as a result, I will discharge patient. Special discussion: I discussed with the patient/guardian in detail that at this point there is no indication for admission to the hospital. It is understood, however, that if the symptoms persist or worsen the patient needs to return immediately for re-evaluation. 10/28 14:51 Order name: IV Start; Complete Time: 15:04 rn Administered Medications: 15:14 Drug: NS 0.9% 1000 ml Route: IV; Rate: 1000 ml; Site: right wrist; aj1 15:14 Drug: Demerol 50 mg Route: IVP; Site: right wrist; aj1 15:14 Drug: Phenergan 12.5 mg Route: IVP; Site: right wrist; aj1 Disposition: 10/28/18 16:03 Discharged to Home. Impression: Migraine. - Condition is Stable. - Discharge Instructions: Migraine Headache. - Medication Reconciliation Form, Thank You Letter, Antibiotic Education, Prescription Opioid Use form. - Follow up: Private Physician; When: As needed; Reason: Recheck today's complaints, Re-evaluation by your physician. - Problem is new. - Symptoms have improved. Signatures: Yvette Recio RN RN aj1 Jordan Forrester RN RN sg Izzy Dennis RN RN iw Gui Layton MD MD rn Corrections: (The following items were deleted from the chart) 16:15 16:03 10/28/2018 16:03 Discharged to Home. Impression: Migraine. Condition is Stable. iw Forms are Medication Reconciliation Form, Thank You Letter, Antibiotic Education, Prescription Opioid Use. Follow up: Private Physician; When: As needed; Reason: Recheck today's complaints, Re-evaluation by your physician. Problem is new. Symptoms have improved. rn
[2018-10-28 18:14] VITALS: TEMP 98; O2SAT 100
[2018-10-28 18:15] VITALS: BP 112/66
== END 2018-10-28 16:15 | disposition home or self-care (01) ==
LOC: ER 13:36
DX: G43.909 Migraine, unspecified, not intractable, without status migrainosus (principal); Z79.82 Long term (current) use of aspirin
CPT/HCPCS: 96375; 96374; 99283; J2550; J2175; J7030

== ENCOUNTER 2023-02-02 15:49 | Emergency (ER) | payer OTHER ==
--- OUTSIDE RECORDS SUMMARY | 2023-02-02 15:52 | XMS REPORT | Continuity of Care Document ---
:1960 Author Organization [facility] t Address [address] [place] [address] Care Team Providers Name Role Phone LILLIE GARNER Attending Clinician Unavailable LAB90 Attending Clinician Unavailable VIKY PICKENS Attending Clinician Unavailable Lillie Garner DO Attending Clinician GREGORY CHAMBERLAIN Attending Clinician Unavailable COVID-PFIZER MARILOU HOOKER Attending Clinician UnavailGregory Kamara MD Attending Clinician Payers Payer Name Policy Type Policy Number Effective Date Expiration Date S estefany MEDICARE-PART B 5 [id number] 2013 00:00:00 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 Was on prolia History of History of Disease Active Overview : Nora cardioembo cardioembo 04-29 Formattin Seybold lic lic 00:00: g of this cerebrovas cerebrovas 00 note cular cular might be accident accident different (CVA) (CVA) from the original. 2010Resid ual weakness on the rt sideOn daily aspirin sinceWas on warfarinD [facility] Ass[facility] t & Plan: Formattin g of this note might be different from the original. Unchanged Hemiparesi Hemiparesi Disease Active K elsey s of right s of right 04-29 Se donnelly dominant dominant 00:00: side as side as 00 late late effect of effect of cerebral cerebral infarction infarction Allergies, Adverse Reactions, Alerts This patient has no known allergies or adverse reactions. Social History Social Habit Start Date Stop Date Quantity Comments Source Exposure to Not sure Nora Christine beverley SARS-CoV-2 (event) Sex Ass[birth year] At [birth year] Nora donnelly 00:00:00 00:00:00 Smoking Status Start Date Stop Date Source Tobacco smoking consumption unknown Nora Caldera Medications Ordered Filled Start Stop Current Ordering Indication Dosage Frequency Signature Comments Components Source Medication Medication Date Date Medication? Clinician (SIG) Name Name Butalbital- 2020- No 1{tbl} Take 1 K elsey Acetaminoph 04-30 tablet by Se donnelly en 50-300 15:08: 00:00 mouth 2 MG oral 36 :00 times Tablet daily Aspirin 325 Yes 325mg Take 325 K elsey MG oral 9-28 mg by Chrisold Tablet 07:59: mouth 51 daily Meloxicam Yes [id number] 15mg Take 1 Ke lsey 15 MG oral 9-28 tablet (15 Sey bold Tablet 00:00: mg total) 00 by mouth daily Immunizations Ordered Immunization Filled Immunization Date Status Commen ts Source Name Name Influenza Virus 2021-04-29 Completed Nora donnelly Vaccine, age 6 00:00:00 months and up Vital Signs Vital Name Observation Time Observation Value Comments Source Systolic blood pressure 2021-04-29 12:56:00 118 mm[Hg] Nora Caldera Diastolic blood 2021-04-29 12:56:00 74 mm[Hg] Katrin Caldera pressure Heart rate 2021-04-29 12:56:00 73 /min Nora graham Body temperature 2021-04-29 12:56:00 37 Abigail Annmarie Caldera Body height 2021-04-29 12:56:00 157.5 cm Norajoyce graham Body weight 2021-04-29 12:56:00 55.792 kg Nora graham BMI 2021-04-29 12:56:00 22.50 kg/m2 Nora graham Procedures Procedure Date / Time Performed Performing Clinician [facility] e REFERRAL TO RADIOLOGY 2021-04-29 20:47:00 Gregory Chamberlain (DIAGNOSTIC) EXTERNAL Encounters Start End Encounter Admission Attending Care Care Encounter Source Date/Time Date/Time Type Type Clinicians Facility Department ID 2022-11-04 2022-11-04 Outpatient NORA GARNER [id number] Nora 00:00:00 00:00:00 LILLIE Seybol d 2022-08-14 2022-08-14 Outpatient LAB90 NORA SHEIKH [id number] Nora 10:45:00 10:45:00 Seybol d 2022-08-14 2022-08-14 Outpatient NORA GARNER [id number] Nora 00:00:00 00:00:00 LILLIE Seybol d 2022-05-26 2022-05-26 Outpatient NORA GARNER [id number] Nora 08:00:00 08:00:00 LILLIE Seybol d 2022-02-26 2022-02-26 Office MARILOU PICKENS [id number] Nora 15:10:00 15:10:00 Visit VIKY [id number] Se ybold [id number] 2022-02-26 2022-02-26 Outpatient NORA SHEIKH [id number] Nora 14:40:00 14:40:00 Seybol d 2022-02-26 2022-02-26 Outpatient NORA PICKENS [id number] Nora 00:00:00 00:00:00 VIKY Seybol d 2022-02-23 2022-02-23 Office Kwan Garner [id number] Nora 09:00:00 09:30:00 Visit Lillie Ren [id number] Se ybold [id number] 2021-05-01 2021-05-01 Outpatient GREGORY CHAMBERLAIN [id number] Nora 00:00:00 00:00:00 Seybol d 2021-04-30 2021-04-30 Outpatient COVID-PFIZE NORA SHEIKH [id number] Nora 10:20:00 10:20:00 Floridalma Joyce HOOKER 2021-04-29 2021-04-29 Office Gregory Chamberlain [id number] Nora 07:53:48 08:08:48 Visit W Mikal [id number] Se nicemoise [id number] Results Test Description Test Time Test Comments Results Result Comments Source REFERRAL TO RADIOLOGY (DIAGNOSTIC) EXTERNAL 2021-04-29 21:08 :00 Test Item Value Reference Range Interpretation Comme nts DANILO (test code = DANILO) [facility] Right 3 view Finding: ?No fracture or dislocation is seen. Osteoporosis Dictated and Signed By : ?Salazar Stein MD RAD Ankle right 3 view: Findings: ?No acute fracture of dislocation is seen. ?Small bony density adjacent to the lateral malleolus has a sclerotic border likely is chronic. Soft tissue swelling Osteoporososis Dictated and Signed by Salazar Stein MD Lab Interpretation (test code = Normal [id number]) Nora Caldera
[2023-02-02] MEDS ORDERED: METOCLOPRAMIDE 10 MG/2mL INJ ONE (16:38)
[2023-02-02] MEDS ORDERED: DIPHENHYDRAMINE 50 MG/ML VIAL ONE (16:38)
[2023-02-02] MEDS ORDERED: dexAMETHasone 10 MG/ML VIAL ONE (16:39)
[2023-02-02] MEDS ORDERED: NACHLORIDE 0.45% 0 ML IV ONE (16:39)
[2023-02-02] MEDS ORDERED: KETOROLAC 30 MG/ML INJ ONE (16:39)
[2023-02-02] MEDS ORDERED: NA CHLORIDE 0.9% 1,000 ML ONE (16:40)
--- NOTE | 2023-02-02 17:25 | EDPHYS ---
Physician Documentation [facility] Name: Dayami Oconnell Age: 62 yrs Sex: Female : 1960 Arrival Date: 02/02/2023 Time: 15:49 Bed 5 Private MD: ED Physician Delmar Pressley HPI: 02/02 17:24 This 62 yrs old Female presents to ER via Ambulatory with complaints of Migraine. ms3 17:24 62-year-old female presents for migraine that began last night. Patient states that ms3 this headache is typical of her migraines. Patient rates her pain a 9/10. Patient states the pain is worse with light and noise. Patient denies alleviating factors Patient endorses nausea and vomiting. . Historical: - Allergies: 15:57 No Known Allergies; nj1 - PMHx: 15:57 CVA; Migraines; nj1 - PSHx: 15:57 None; nj1 - Immunization history:: Client reports receiving the 2nd dose of the Covid vaccine. - Social history:: Smoking status: Patient denies any tobacco usage or history of. ROS: 17:24 Constitutional: Negative for fever, and chills. Neck: Negative for injury, pain, and ms3 swelling, Cardiovascular: Negative for chest pain, and palpitations. Respiratory: Negative for shortness of breath, cough, wheezing, and pleuritic chest pain, Abdomen/GI: Negative for abdominal pain, nausea, vomiting, diarrhea, and constipation, MS/Extremity: Negative for injury and deformity. 17:24 Neuro: Positive for headache. 17:24 All other systems are negative. Exam: 17:24 Constitutional: This is a well developed, well nourished patient who is awake, alert, ms3 and in no acute distress. Head/Face: Normocephalic, atraumatic. Chest/axilla: Normal chest wall appearance and motion. Nontender with no deformity. Cardiovascular: Regular rate and rhythm with a normal S1 and S2. No gallops, murmurs, or rubs. Normal PMI, no JVD. No pulse deficits. Respiratory: Lungs have equal breath sounds bilaterally, clear to auscultation and percussion. No rales, rhonchi or wheezes noted. No increased work of breathing, no retractions or nasal flaring. Abdomen/GI: Soft, non-tender, with normal bowel sounds. No distension or tympany. No guarding or rebound. No evidence of tenderness throughout. Skin: Warm, dry with normal turgor. Normal color with no rashes, no lesions, and no evidence of cellulitis. MS/ Extremity: Pulses equal, no cyanosis. Neurovascular intact. Full, normal range of motion. 17:24 Neuro: Orientation: is normal, to person, place, time \T\ situation. Mentation: is normal, Memory: is normal, Cranial nerves: CN I not tested, CN II- XII are normal as tested, Motor: is normal. Vital Signs: 15:55 BP 122 / 83; Pulse 93; Resp 18; Temp 98.9; Pulse Ox 100% on R/A; Weight 51.71 kg; nj1 Height 5 ft. 2 in. ; Pain 9/10; 17:49 BP 105 / 61; Pulse 75; Resp 16; Pulse Ox 98% on R/A; vg1 18:11 BP 110 / 66; Pulse 70; Resp 16; Pulse Ox 99% on R/A; vg1 15:55 Body Mass Index 20.85 (51.71 kg, 157.48 cm) nj1 15:55 Pain Scale: Adult nj1 MDM: 16:20 Patient medically screened. ms3 17:24 Differential diagnosis: migraine, tension headache. Data reviewed: vital signs, nurses ms3 notes, and as a result, I will discharge patient. I considered the following discharge prescriptions or medication management in the emergency department Medications were administered in the Emergency Department. See MAR. Historians other than the Patient: Spouse/Significant Other: Patient's . Care significantly affected by the following chronic conditions: Migraines. Counseling: I had a detailed discussion with the patient and/or guardian regarding: the historical points, exam findings, and any diagnostic results supporting the discharge/admit diagnosis, the need for outpatient follow up, to return to the emergency department if symptoms worsen or persist or if there are any questions or concerns that arise at home. Response to treatment: the patient's symptoms have markedly improved after treatment, and as a result, I will discharge patient. Special discussion: I discussed with the patient/guardian in detail that at this point there is no indication for admission to the hospital. It is understood, however, that if the symptoms persist or worsen the patient needs to return immediately for re-evaluation. Administered Medications: 16:43 Drug: diphenhydrAMINE IVP 50 mg Route: IVP; Site: left forearm; vg1 17:50 Follow up: Response: No adverse reaction; Pain is decreased vg1 16:45 Drug: Decadron - Dexamethasone IVP 10 mg Route: IVP; Site: left forearm; vg1 17:50 Follow up: Response: No adverse reaction; Pain is decreased vg1 16:48 Drug: Ketorolac IVP 10 mg 10 mg Route: IVP; Site: left forearm; vg1 17:50 Follow up: Response: No adverse reaction; Pain is decreased vg1 16:49 Drug: metoCLOPramide IVP 10 mg Route: IVP; Site: left forearm; vg1 17:50 Follow up: Response: No adverse reaction; Pain is decreased vg1 16:49 Drug: NS 0.9% IV 1000 ml Route: IV; Rate: 1000 ml; Site: left forearm; vg1 18:11 Follow up: IV Status: Completed infusion; IV Intake: 1000ml vg1 Disposition Summary: 02/02/23 17:24 Discharge Ordered Location: Home ms3 Condition: Stable ms3 Diagnosis - Migraine without aura, not intractable ms3 Followup: ms3 - With: Kurt Garcia MD - When: 2 - 3 days - Reason: Recheck today's complaints Discharge Instructions: - Discharge Summary Sheet ms3 - Migraine Headache ms3 Forms: - Medication Reconciliation Form ms3 - Thank You Letter ms3 - Antibiotic Education ms3 - Prescription Opioid Use ms3 - [email or web address] ms3 Signatures: Kimberly Bee, RN RN vg1 Delmar Pressley DO DO ms3 Daisha Cyr, RN RN nj1
--- NOTE | 2023-02-02 17:25 | ER ---
Nurse's Notes [facility] Name: Dayami Oconnell Age: 62 yrs Sex: Female : 1960 Arrival Date: 02/02/2023 Time: 15:49 Bed 5 Private MD: Diagnosis: Migraine without aura, not intractable Presentation: 02/02 15:55 Chief complaint: Patient states: Migraine since last night, getting worse. Took nj1 excedrin with no relief. Coronavirus screen: Vaccine status: Patient reports receiving the 2nd dose of the covid vaccine. Ebola Screen: Patient denies travel to an Ebola-affected area in the 21 days before illness onset. Initial Sepsis Screen: Does the patient meet any 2 criteria? HR > 90 bpm. No. Patient's initial sepsis screen is negative. Does the patient have a suspected source of infection? No. Patient's initial sepsis screen is negative. Risk Assessment: Do you want to hurt yourself or someone else? Patient reports no desire to harm self or others. Onset of symptoms was February 01, 2023. 15:55 Method Of Arrival: Ambulatory [facility] 15:55 Acuity: RIMA 3 nj1 Historical: - Allergies: 15:57 No Known Allergies; nj1 - PMHx: 15:57 CVA; Migraines; nj1 - PSHx: 15:57 None; nj1 - Immunization history:: Client reports receiving the 2nd dose of the Covid vaccine. - Social history:: Smoking status: Patient denies any tobacco usage or history of. Screenin:45 [facility] ED Fall Risk Assessment (Adult) History of falling in the last 3 months, vg1 including since admission No falls in past 3 months (0 pts). Abuse screen: Denies threats or abuse. Denies injuries from another. Nutritional screening: No deficits noted. Nutritional screening:. Tuberculosis screening: No symptoms or risk factors identified. Assessment: 16:45 General: Appears in no apparent distress. uncomfortable, Behavior is cooperative. Pain: vg1 Complains of pain in head Pain currently is 9 out of 10 on a pain scale. Pain began "last night". Neuro: Level of Consciousness is awake, alert, obeys commands, Oriented to person, place, time, situation, Reports headache photophobia. Cardiovascular: Patient's skin is warm and dry. Respiratory: Airway is patent Respiratory effort is even, unlabored. GI: Reports nausea, vomiting. 17:49 Reassessment: Patient appears in no apparent distress at this time. Patient and/or vg1 family updated on plan of care and expected duration. Pain level reassessed. Patient is alert, oriented x 3, equal unlabored respirations, skin warm/dry/pink. pain 4/10; Pt up for discharge, currently waiting for IV fluids to complete. Patient states feeling better. Vital Signs: 15:55 BP 122 / 83; Pulse 93; Resp 18; Temp 98.9; Pulse Ox 100% on R/A; Weight 51.71 kg; nj1 Height 5 ft. 2 in. ; Pain 9/10; 17:49 BP 105 / 61; Pulse 75; Resp 16; Pulse Ox 98% on R/A; vg1 18:11 BP 110 / 66; Pulse 70; Resp 16; Pulse Ox 99% on R/A; vg1 15:55 Body Mass Index 20.85 (51.71 kg, 157.48 cm) nj1 15:55 Pain Scale: Adult nj1 ED Course: 15:50 Patient arrived in ED. rg4 15:57 Triage completed. nj1 15:57 Arm band placed on left wrist. nj1 16:09 Delmar Pressley DO is Attending Physician. ms3 16:10 Kimberly Bee RN is Primary Nurse. vg1 16:45 Patient has correct armband on for positive identification. Bed in low position. Call vg1 light in reach. Side rails up X 1. Adult w/ patient. 16:45 No provider procedures requiring assistance completed. Inserted saline lock: 20 gauge vg1 in left forearm, using aseptic technique. 17:24 Kurt Garcia MD is Referral Physician. ms3 18:11 IV discontinued, intact, bleeding controlled, No redness/swelling at site. Pressure vg1 dressing applied. Administered Medications: 16:43 Drug: diphenhydrAMINE IVP 50 mg Route: IVP; Site: left forearm; vg1 17:50 Follow up: Response: No adverse reaction; Pain is decreased vg1 16:45 Drug: Decadron - Dexamethasone IVP 10 mg Route: IVP; Site: left forearm; vg1 17:50 Follow up: Response: No adverse reaction; Pain is decreased vg1 16:48 Drug: Ketorolac IVP 10 mg 10 mg Route: IVP; Site: left forearm; vg1 17:50 Follow up: Response: No adverse reaction; Pain is decreased vg1 16:49 Drug: metoCLOPramide IVP 10 mg Route: IVP; Site: left forearm; vg1 17:50 Follow up: Response: No adverse reaction; Pain is decreased vg1 16:49 Drug: NS 0.9% IV 1000 ml Route: IV; Rate: 1000 ml; Site: left forearm; vg1 18:11 Follow up: IV Status: Completed infusion; IV Intake: 1000ml vg1 Medication: 16:45 VIS not applicable for this client. vg1 Intake: 18:11 IV: 1000ml; Total: 1000ml. vg1 Outcome: 17:24 Discharge ordered by . ms3 18:11 Discharged to home ambulatory, with family. vg1 18:11 Condition: good 18:11 Discharge instructions given to 18:12 Patient left the ED. vg1 Signatures: Cat Bee rg4 Kimberly Bee RN RN vg1 Delmar Pressley DO DO ms3 Daisha Cyr, AVIS RN nj1 Corrections: (The following items were deleted from the chart) 15:58 15:55 BP 122 / 83; Pulse 93bpm; Resp 18bpm; Pulse Ox 100% RA; 51.71 kg; Height 5 ft. 2 nj1 in.; BMI: 20.8; Pain 9/10, Adult; nj1
[2023-02-02 18:29] VITALS: TEMP 98.9
[2023-02-02 18:41] VITALS: BP 110/66; O2SAT 99
== END 2023-02-02 18:12 | disposition home or self-care (01) ==
LOC: ER 15:49
DX: G43.009 Migraine without aura, not intractable, without status migrainosus (principal)
CPT/HCPCS: 96361; 96375; 96374; 99284; J2765; J1200; J1100; J7030

== ENCOUNTER 2025-05-10 17:45 | Emergency (ER) | payer OTHER ==
--- OUTSIDE RECORDS SUMMARY | 2025-05-10 17:48 | XMS REPORT | Continuity of Care Document ---
Author Name Unknown Address [address] [place] [address] Organization [facility] [place] Address [address] [place] [address] Care Team Providers Care Machine Steak Tenderizer Name Role Phone LILLIE GARNER Attending Clinician Unavailable LAB90 Attending Clinician Unavailable VIKY PICKENS Attending Clinician Unavailable Lillie Garner DO Attending Clinician [phone] GREGORY CHAMBERLAIN Attending Clinician Unavailable COVID-PFIZER MARILOU HOOKER Attending Clinici an Unavailable Gregory Chamberlain MD Attending Clinician [phone] Payers Payer Name Policy Type Policy Number Effective Date Expirati on Date Source EMILIANO BALLARDPLUS CLASSIC SIMPLE 7 [id number] 2025 00:00:00 MEDICARE-PART B 5 [id number] 2013 00:00:00 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 Was on prolia Nora Seybold History of cardioembo lic cerebrovas cular accident (CVA) History of cardioembo lic cerebrovas cular accident (CVA) Disease Active 04-29 00:00: 00 Overview: Formattin g of this note might be different from the original. 2011Resid ual weakness on the rt sideOn daily aspirin sinceWas on warfarinD briana Chaparro in [facility] t Assessmen t & Plan: Formattin g of this note might be different from the original. Unchanged Nora Caldera Hemiparesi s of right dominant side as late effect of cerebral infarction Hemiparesi s of right dominant side as late effect of cerebral infarction Disease Active 04-29 00:00: 00 Nora Caldera Social History Social Habit Start Date Stop Date Quantity Comments Source Exposure to SARS-CoV-2 (event) Not sure Nora donnelly Sex Ass[birth year] At 1960 00:00:00 1960 00:[birth year]:00 Nora Caldera Smoking Status Start Date Stop Date Source Tobacco smoking consumption unknown Nora Caldera Medications Ordered Medication Name Filled Medication Name Start Date Stop Date Current Medication? Ordering Clinician Indication Dosage Frequency Signature (SIG) Comments Components Source Butalbital- Acetaminoph en 50-300 MG oral Tablet 04-30 15:08: 36 04-29 00:00 :00 No 1{tbl} Take 1 tablet by mouth 2 times daily Nora Caldera Aspirin 325 MG oral Tablet 04-29 07:59: 51 Yes 325mg Take 325 mg by mouth daily Nora Caldera Meloxicam 15 MG oral Tablet 04-29 00:00: 00 Yes [id number] 15mg Take 1 tablet (15 mg total) by mouth daily Nora Caldera Vital Signs Vital Name Observation Time Observation Value Comments S ource Systolic blood pressure 2021-04-29 12:56:00 118 mm[Hg] Nora Caldera Diastolic blood pressure 2021-04-29 12:56:00 74 mm[Hg] Nora Lugo ld Heart rate 2021-04-29 12:56:00 73 /min Katrin Caldera Body temperature 2021-04-29 12:56:00 37 Abigail Nora Caldera Body height 2021-04-29 12:56:00 157.5 cm Annmarie Caldera Body weight 2021-04-29 12:56:00 55.792 kg Annmarie Caldera BMI 2021-04-29 12:56:00 22.50 kg/m2 Annmarie Caldera Procedures Procedure Date / Time Performed Performing Clinicia n Source REFERRAL TO RADIOLOGY (DIAGNOSTIC) EXTERNAL 2021-04-29 20:47:00 Gregory Chamberlain Nora Caldera Encounters Start Date/Time End Date/Time Encounter Type Admission Type Attending [facility] Care Department Encounter ID Source 2025-04-20 00:00:00 2025-04-20 00:00:00 Outpatient LILLIE GARNER NORA [id number] Nora Caldera 2024-10-06 00:00:00 2024-10-06 00:00:00 Outpatient LILLIE GARNER NORA SHEIKH [id number] Nora Caldera 2022-11-04 00:00:00 2022-11-04 00:00:00 Outpatient LILLIE GARNER NORA NORA [id number] Nora Caldera 2022-08-14 10:45:00 2022-08-14 10:45:00 Outpatient LAB90 NORA SHEIKH [id number] Nora Caldera 2022-08-14 00:00:00 2022-08-14 00:00:00 Outpatient LILLIE GARNER NORA SHEIKH [id number] Nora Caldera 2022-05-26 08:00:00 2022-05-26 08:00:00 Outpatient LILLIE GARNER NORA NORA [id number] Nora Caldera 2022-02-26 15:10:00 2022-02-26 15:10:00 Office Visit VIKY PICKENS .[id number] Nora Caldera 2022-02-26 14:40:00 2022-02-26 14:40:00 Outpatient NORA SHEIKH [id number] Nora Naidumoise 2022-02-26 00:00:00 2022-02-26 00:00:00 Outpatient VIKY PICKENS [id number] Nora Caldera 2022-02-23 09:00:00 2022-02-23 09:30:00 Office Visit Lillie Garner .[id number] Nora Caldera 2021-05-01 00:00:00 2021-05-01 00:00:00 Outpatient GREGORY CHAMBERLAIN [id number] Nora Caldera 2021-04-30 10:20:00 2021-04-30 10:20:00 Outpatient COVID-PFIZE MARILOU HAYES [id number] Nora Caldera 2021-04-29 07:53:48 2021-04-29 08:08:48 Office Visit Gregory Chabmerlain [id number] Nora Caldera Results Test Description Test Time Test Comments Results Result Co mments Source Nora Caldera
[2025-05-10] MEDS ORDERED: IBUPROFEN 400 MG TAB ONE (18:27)
--- NOTE | 2025-05-10 19:16 | RAD REPORT ---
EXAMINATION: XR Tib Fib Right CLINICAL INDICATION: Female, 64 years old. SMASH INJURY TECHNIQUE: 2 view radiograph of the right tibia and fibula were obtained. COMPARISON: No prior exam. FINDINGS: No evidence of fracture or dislocation. Normal alignment. No evidence of arthropathy or oth er focal bone lesion. Soft tissues are unremarkable. IMPRESSION: No acute or significant abnormalities.
--- NOTE | 2025-05-10 19:27 | EDPHYS ---
Physician Documentation [facility] Name: Dayami Oconnell Age: 64 yrs Sex: Female : 1960 Arrival Date: 05/10/2025 Time: 17:45 Bed Treatment Private MD: ED Physician Delmar Pressley HPI: 05/10 18:36 This 64 yrs old Female presents to ER via Wheelchair with complaints of Ankle Injury - cr8 RT. 18:36 Patient is a 64-year-old female who comes emergency room complaining of right ankle cr8 pain. She reports that several hours ago she dropped a marble slab on her right foot. Complains of pain to the right harry and ankle. She placed a boot on it that she had from a previous injury. She took a half a Lortab at home. Reports continued pain. Neurovascular status intact distally. No other injuries.. Historical: - Allergies: 18:04 No Known Allergies; dd2 - PMHx: 18:04 CVA; Migraines; dd2 - PSHx: 18:04 None; dd2 - Social history:: Smoking status: Patient denies any tobacco usage or history of. ROS: 18:36 Constitutional: as per HPI cr8 Exam: 18:36 Constitutional: This is a well developed, well nourished patient who is awake, alert, cr8 and in no acute distress. Skin: Warm, dry with normal turgor. Normal color with no rashes, and no evidence of cellulitis. There are several abrasions to the right anterior harry with some mild ecchymosis to the right anterior harry 18:38 MS/ Extremity: Pulses equal, no cyanosis. Neurovascular intact. Tenderness to the cr8 medial malleolus on the right side. There are some anterior tenderness to the malleolus. No deformity. Pulses are intact. No edema to the foot ankle. 19:38 Musculoskeletal/extremity: Range of motion to right lower extremity unable to be tested cr8 given that she has a history of a CVA and weakness to the right lower extremity. Given that there is no evidence of emergent condition at this time.. Vital Signs: 17:58 BP 110 / 69; Pulse 84; Resp 16; Temp 98.3; Pulse Ox 99% ; Weight 54.43 kg; Pain 9/10; dd2 17:58 Pain Scale: Adult dd2 MDM: 18:03 Medical Screening Exam initiated cr8 19:25 Data reviewed: vital signs, nurses notes, radiologic studies. Independent cr8 interpretation of the following test(s) in the Emergency Department X-Ray: My interpretation is Right tib-fib did not show any evidence of dislocation or fracture on my interpretation.. 19:38 ED course: Patient coming emergency room for an injury to the right lower extremity. cr8 Considered fracture dislocation sprain strain contusion. Went ahead and ordered x-ray to evaluate for fracture dislocation. Imaging did not show any evidence of acute injury. Considered neurovascular injury but this is unlikely given that there is good pulses distally, color is intact, extremity is warm. On examination there is no concern for emergent condition. Discussed with the patient conservative treatment at home. Offered crutches but she cannot use them given a history of a CVA. Advised to follow-up with her PCP for reevaluation next 3 to 5 days.. 05/10 18:04 Order name: Tib Fib Right XRAY; Complete Time: 19:17 cr8 Administered Medications: 18:35 Drug: Ibuprofen PO 400 mg PO once Route: PO; jb4 19:42 Follow up: Response: No adverse reaction; Marked relief of symptoms jb4 Disposition: 20:23 I was immediately available on-site in the Emergency Department for consultation in the ms3 care of the patient. Disposition Summary: 05/10/25 19:27 Discharge Ordered Notes: Location: Home cr8 Condition: Stable cr8 Diagnosis - Crushing injury of foot cr8 - Abrasion of lower leg cr8 - Contusion of left lower leg cr8 Followup: cr8 - With: Private Physician - When: 5 - 6 days - Reason: Recheck today's complaints, Re-evaluation by your physician Followup: cr8 - With: Emergency Department - When: As needed - Reason: Worsening of condition Discharge Instructions: - Discharge Summary Sheet cr8 - Abrasion cr8 Forms: - Medication Reconciliation Form cr8 - Prescription Opioid Use cr8 - Patient Portal Instructions cr8 - Leadership Thank You Letter cr8 Signatures: Dispatcher [employer] EDMS Abimael Zimmerman RN RN jb4 Delmar Pressley DO DO ms3 NATACHA GAITAN RN RN dd2 Wilbur Santamaria NP METER READERS SUPERVISOR cr8 Corrections: (The following items were deleted from the chart) 18:05 18:05 Tib Fib Right+RAD.RAD.BRZ ordered. EDMS EDMS 19:00 18:05 Ankle Right 3 View+RAD.RAD.BRZ ordered. EDMS EDMS 19:40 18:36 Musculoskeletal/extremity: ROM: limited active range of motion, Circulation is cr8 intact in all extremities. cr8
--- NOTE | 2025-05-10 19:27 | ER ---
Nurse's Notes [facility] Name: Dayami Oconnell Age: 64 yrs Sex: Female : 1960 Arrival Date: 05/10/2025 Time: 17:45 Bed Treatment Private MD: Diagnosis: Crushing injury of foot;Abrasion of lower leg;Contusion of left lower leg Presentation: 05/10 17:58 Chief complaint: Patient states: A MARBLE TABLE FELL ON RT LEG AT 1030 AM. PT REPORTS dd2 UNABLE TO PUT PRESSURE ON LEG WITH MOST PAIN IN THE ANKLE. Coronavirus screen: At this time, the client does not indicate any symptoms associated with coronavirus-19. Ebola Screen: No symptoms or risks identified at this time. Initial Sepsis Screen: Does the patient meet any 2 criteria? No. Patient's initial sepsis screen is negative. Does the patient have a suspected source of infection? No. Patient's initial sepsis screen is negative. Risk Assessment: Do you want to hurt yourself or someone else? Patient reports no desire to harm self or others. Onset of symptoms was May 10, 2025 at 10:30. 17:58 Method Of Arrival: Wheelchair dd2 17:58 Acuity: RIMA 3 dd2 Triage Assessment: 18:04 General: Appears in no apparent distress. uncomfortable, well groomed, Behavior is dd2 cooperative, appropriate for age, crying. Pain: Complains of pain in right ankle. Musculoskeletal: Circulation, motion, and sensation intact. Range of motion: limited in right ankle Swelling present in right ankle Tenderness present in right lateral malleolus. Injury Description: Abrasion sustained to right harry. Historical: - Allergies: 18:04 No Known Allergies; dd2 - PMHx: 18:04 CVA; Migraines; dd2 - PSHx: 18:04 None; dd2 - Social history:: Smoking status: Patient denies any tobacco usage or history of. Screenin:10 [facility] ED Fall Risk Assessment (Adult) History of falling in the last 3 months, jb4 including since admission No falls in past 3 months (0 pts) Confusion or Disorientation No (0 pts) Intoxicated or Sedated No (0 pts) Impaired Gait No (0 pts) Mobility Assist Device Used No (0 pt) Altered Elimination No (0 pt) Score/Fall Risk Level 0 - 2 = Low Risk Oriented to surroundings, Maintained a safe environment. Abuse screen: Denies threats or abuse. Nutritional screening: No deficits noted. Tuberculosis screening: No symptoms or risk factors identified. Assessment: 18:15 General: Appears in no apparent distress. uncomfortable, Behavior is calm, cooperative, jb4 appropriate for age. Pain: Complains of pain in right harry and anterior aspect of right ankle Pain does not radiate. Pain currently is 9 out of 10 on a pain scale. Neuro: Level of Consciousness is awake, alert, obeys commands, Oriented to person, place, time, situation. Cardiovascular: Patient's skin is warm and dry. Respiratory: Airway is patent Respiratory effort is even, unlabored, Respiratory pattern is regular, symmetrical. Derm: Skin is pink, warm \T\ dry. Musculoskeletal: Circulation, motion, and sensation intact. Range of motion: intact in all extremities, Swelling present in right ankle. Injury Description: Abrasion sustained to right harry. Vital Signs: 17:58 BP 110 / 69; Pulse 84; Resp 16; Temp 98.3; Pulse Ox 99% ; Weight 54.43 kg; Pain 9/10; dd2 17:58 Pain Scale: Adult dd2 ED Course: 17:50 Patient arrived in ED. cj3 17:56 Wilbur Santamaria NP is PHCP. cr8 17:56 Delmar Pressley DO is Attending Physician. cr8 18:04 Triage completed. dd2 18:04 Arm band placed on right wrist. dd2 19:01 Tib Fib Right XRAY In Process Unspecified. EDMS 19:09 Abimael Zimmerman, RN is Primary Nurse. jb4 19:10 Patient has correct armband on for positive identification. Bed in low position. Call jb4 light in reach. Side rails up X 1. Provided Education on: plan of care. 19:33 No provider procedures requiring assistance completed. Patient did not have IV access jb4 during this emergency room visit. Administered Medications: 18:35 Drug: Ibuprofen PO 400 mg PO once Route: PO; jb4 19:42 Follow up: Response: No adverse reaction; Marked relief of symptoms jb4 Medication: 19:10 VIS not applicable for this client. jb4 Outcome: 19:27 Discharge ordered by . cr8 19:42 Discharged to home via wheelchair, with family, jb4 19:42 Condition: stable 19:42 Discharge instructions given to patient, family, Instructed on discharge instructions, follow up and referral plans. Demonstrated understanding of instructions, follow-up care, 19:42 Patient left the ED. jb4 Signatures: Dispatcher [employer] EDAbimael Overton RN RN jb4 NATACHA GAITAN RN RN dd2 Yoly Recio cj3 Wilbur Santamaria NP FIXED WING AIRCRAFT FLIGHT MECHANIC cr8
[2025-05-10 20:04] VITALS: BP 110/69; TEMP 98.3; O2SAT 99
== END 2025-05-10 19:42 | disposition home or self-care (01) ==
LOC: ER 17:45
DX: S97.81XA Crushing injury of right foot, initial encounter (principal); S80.811A Abrasion, right lower leg, initial encounter; S80.12XA Contusion of left lower leg, initial encounter
CPT/HCPCS: 99283